=== PATIENT | female | born 1960 ===

== ENCOUNTER 2018-09-09 11:23 | Outpatient (CLI) | payer OTHER ==
[~2018-09-09] VITALS: Ht 162.6 cm; Wt 50.8 kg
[2018-09-09] MEDS ORDERED: LIPO-FLAVONOID1 EACH PO (11:55)
[2018-09-09] MEDS ORDERED: FLONASE16 GM NASAL (11:55)
[2018-09-09] MEDS ORDERED: CLARITIN10 MG PO (11:55)
== END 2018-09-09 11:45 | disposition home or self-care (01) ==
LOC: OFIC 805 11:23
DX: J31.0 Chronic rhinitis (principal); H93.13 Tinnitus, bilateral; R42 Dizziness and giddiness

== ENCOUNTER 2018-10-21 10:19 | Outpatient (CLI) | payer OTHER ==
[~2018-10-21] VITALS: Ht 152.4 cm; Wt 50.8 kg
[~2018-10-21 10:19] MED LIST: CLARITIN10 MG PO; FLONASE16 GM NASAL; LIPO-FLAVONOID1 EACH PO
== END 2018-10-21 10:40 | disposition home or self-care (01) ==
LOC: OFIC 805 10:19
DX: R42 Dizziness and giddiness (principal); J31.0 Chronic rhinitis; H93.13 Tinnitus, bilateral

== ENCOUNTER 2021-11-01 09:33 | Emergency (ER) | payer OTHER ==
[~2021-11-01] VITALS: Ht 154.9 cm; Wt 59.9 kg
[2021-11-01] MEDS ORDERED: LEVOTHYROXINE75 MCG PO (09:46)
== END 2021-11-01 15:44 | disposition home or self-care (01) ==
LOC: ER 09:33
DX: J06.9 Acute upper respiratory infection, unspecified (principal); R53.81 Other malaise

== ENCOUNTER 2022-03-07 09:55 | Emergency (ER) | payer OTHER ==
[~2022-03-07] VITALS: Ht 152.4 cm; Wt 50.8 kg
[~2022-03-07 09:55] MED LIST changes: +LEVOTHYROXINE75 MCG PO
[2022-03-07] MEDS ORDERED: DRAMAMINE LESS25 MG (10:28)
== END 2022-03-07 18:37 | disposition home or self-care (01) ==
LOC: ER 09:55
DX: R10.9 Unspecified abdominal pain (principal); Z88.6 Allergy status to analgesic agent; E03.9 Hypothyroidism, unspecified

== ENCOUNTER 2022-05-18 14:06 | Emergency (ER) | payer OTHER ==
[~2022-05-18] VITALS: Ht 157.5 cm; Wt 43.1 kg
[~2022-05-18 14:06] MED LIST changes: +DRAMAMINE LESS25 MG
== END 2022-05-18 17:55 | disposition home or self-care (01) ==
LOC: ER 14:06
DX: K29.70 Gastritis, unspecified, without bleeding (principal); K76.9 Liver disease, unspecified; Z88.8 Allergy status to other drugs, medicaments and biological substances